=== PATIENT | male | born 1970 | race Two or more races ===

== ENCOUNTER → 2017-11-20 | Emergency (ER) | payer SELFPAY ==
[~2017-11-20] VITALS: Ht 170.2 cm; Wt 113.4 kg
[~2017-11-20] MED LIST: IV NS 0.9% 1,000 ML BAG IV ONE; LORAZEPAM INJ 2 MG/ML VIAL IM ONE; LORAZEPAM INJ 2 MG/ML VIAL IV ONE; LORAZEPAM INJ 2 MG/ML VIAL ONE; OLANZAPINE 10 MG VIAL IM ONE; diphenhydrAMINE HCL 50 MG/ML VIAL IM ONE; diphenhydrAMINE HCL 50 MG/ML VIAL ONE
--- NOTE | 2017-11-20 05:45 | NUR ---
BIB EMS WITH [employer] FOUND IN FRONT OF HOTEL FOR BIZZARE BEHAVIOR. RECEIVE PT COMBATIVE, RESTLESS, UNCOOPERATIVE. PLACE PT ON CARDIAC MONITORING, CONTINUOUS POX, O2@2L/NC. ER MD AT BEDSIDE TO EVAL PT WITH ORDERS. PLACE PT ON RESTRAINTS PER ER MD ORDER.
--- NOTE | 2017-11-20 05:50 | NUR ---
I&O CATH DONE, URINE SAMPLE COLLECTED AND SENT TO LAB.
--- NOTE | 2017-11-20 05:55 | NUR ---
PT MEDICATED ORDERED.
--- NOTE | 2017-11-20 06:09 | NUR ---
GAS MANAGER AT BEDSIDE FOR BLOOD DRAW.
[2017-11-20 06:22] LABS: BASOPHILS # (AUTO) 0.1 /CMM (0.0-0.2); BASOPHILS % (AUTO) 0.7 % (0.0-2.0); EOSINOPHILS % (AUTO) 0.1 % (0.0-6.0); HEMATOCRIT 54 % (39-51); HEMOGLOBIN 17.9 g/dL (13.5-17.5); LYMPHOCYTES # (AUTO) 1.4 /CMM (0.8-4.8); LYMPHOCYTES % (AUTO) 12.6 % (20.0-44.0); MEAN CORPUSCULAR HGB CONC 33 g/dl (31.0-36.0); MEAN CORPUSCULAR VOLUME 92 fL (80-96); MONOCYTES # (AUTO) 0.6 /CMM (0.1-1.30); MONOCYTES % (AUTO) 5.1 % (2.0-12.0); NEUTROPHILS # (AUTO) 8.8 /CMM (1.8-8.9); NEUTROPHILS % (AUTO) 81.5 % (43.0-81.0); PLATELET COUNT (AUTO) 199 /CMM (150-450); RDW COEFFICIENT OF VARIATION 13.4 (11.5-15.0); RED BLOOD CELL COUNT(AUTO) 5.91 MIL/uL (4.5-6.0); WHITE BLOOD COUNT (AUTO) 10.8 K/uL (4.3-11.0)
[2017-11-20 06:23] LABS: APPEARANCE,URINE SL CLOUDY (CLEAR); BILIRUBIN,URINE 1+ (NEGATIVE); BLOOD, URINE 3+ Ery/uL (NEGATIVE); COLOR,URINE YELLOW (YELLOW); KETONES,URINE TRACE (NEGATIVE); LEUKOCYTE ESTERASE ,URINE TRACE (NEGATIVE); NITRITE, URINE NEGATIVE (NEGATIVE); PROTEIN,URINE 2+ mg/dl (NEGATIVE); UGLUCOSE NEGATIVE (NEGATIVE); UROBILINOGEN,URINE 0.2 EU/dL (0.2)
[2017-11-20 06:31] LABS: CALCIUM, SERUM 10.3 mg/dL (8.5-10.1); CARBON DIOXIDE 21 mmol/L (21-32); CHLORIDE 99 mmol/L (98-107); CREATININE 2.3 mg/dL (0.6-1.3); GLUCOSE 113 mg/dL (74-106); POTASSIUM 3.3 mmol/L (3.5-5.1); SODIUM SERUM 143 mmol/L (136-145); UREA NITROGEN, BLOOD 28 mg/dL (7-18)
[2017-11-20 06:39] LABS: ALANINE AMINOTRANSFERASE 40 U/L (12-78); ALKALINE PHOSPHATASE 72 U/L (46-116); ASPARTATE AMINOTRANSFERASE 42 U/L (15-37); BILIRUBIN,DIRECT 0.3 mg/dL (0.0-0.2); BILIRUBIN,TOTAL 1.6 mg/dL (0.2-1.0); TOTAL PROTEIN, SERUM 9.3 g/dL (6.4-8.2)
[2017-11-20 06:40] LABS: ACETAMINOPHEN 0 ug/ml (10-30); ALCOHOL, BLOOD < 3 mg/dL (0-0); SALICYLATE 2.2 mg/dL (2.8-20.0)
[2017-11-20 06:46] LABS: WBC,URINE 21-50 /HPF (0-3)
[2017-11-20 06:47] LABS: RBC,URINE 20-30 /HPF (0-2)
[2017-11-20 06:48] LABS: BACTERIA,URINE Many /HPF (None Seen); SQUAMOUS EPITHELIAL CELL,UR Rare /HPF (None Seen)
--- NOTE | 2017-11-20 07:10 | NUR ---
REPORT GIVEN TO JOSEE MCCLELLAN.
--- NOTE | 2017-11-20 09:04 | NUR ---
PT IS STILL HYPEERTENSIVE. ERMD AT BEDSIDE FOR RE EVAL. W/ ORDERS WILL CARRY OUT.
[2017-11-20 10:35] LABS: CALCIUM, SERUM 8.2 mg/dL (8.5-10.1); CREATININE 1.5 mg/dL (0.6-1.3); POTASSIUM 3.6 mmol/L (3.5-5.1)
--- NOTE | 2017-11-20 12:16 | NUR ---
PT IS SLEEPING, ON MONITOR W/ STABLE VITALS. WILL CONTINUE TO MONITOR.
--- NOTE | 2017-11-20 14:36 | NUR ---
Sitting in bed eating,IV removed. Catheter intact and site benign. Pressure and 4x4 applied to site. No bleeding noted.Verbalized understanding of [facility]. Waiting for family to pick him up.
[2017-11-20 15:20] VITALS: BP 125/71
== END | disposition home or self-care (01) ==
LOC: ER 05:45
DX: F24 Shared psychotic disorder (principal); N28.9 Disorder of kidney and ureter, unspecified; E87.6 Hypokalemia; F19.10 Other psychoactive substance abuse, uncomplicated; R94.31 Abnormal electrocardiogram [ECG] [EKG]
CPT/HCPCS: 36415; 80048-TC; 80076-TC; 80305; 81000-TC; 85025-TC; 87086-TC; A4606; G0480; J1200; J2060; J3490; J7030; Z7610